=== PATIENT | male | born 1935 | race Caucasian/White ===

== ENCOUNTER 2017-09-20 13:02 | Observation (INO) | payer MEDICARE, OTHER ==
[~2017-09-20] VITALS: Ht 175.3 cm; Wt 82.6 kg
[2017-09-20 13:31] VITALS: BP 147/88
--- NOTE | 2017-09-20 13:34 | NUR ---
TRIAGE BROUGHT TO ROOM 6 AND MONITORS APPLIED. C/O BLOOD IN URINE. WAS SEEN HERE YESTERDAY WHERE HE HAD A CT, LABWORK AND UA. HE WAS STARTED ON CIPRO AND TOLD TO F/U WITH PRIMARY DOCTOR ON THURSDAY. HE HAS CONTINUALLY FELT WEAKER AND CONTINUED TO HAVE BLOOD IN THE URINE. NO PAIN UNLESS URINATING. VITAL SIGNS WITHIN NORMAL LIMITS. WARM BLANKET PROVIDED AND NOTIFIED DOCTOR OF PATIENT'S ARRIVAL. WILL F/U WITH FURTHER ORDERS. LW
--- NOTE | 2017-09-20 13:50 | NUR ---
LAB LAB HERE FOR BLOOD DRAW. LW
[2017-09-20 13:59] LABS: BASOPHIL % 0.2 % (0.0-0.2); EOSINOPHIL # 0.1 10^3/uL (0.0-0.2); EOSINOPHIL % 0.9 % (0.0-5.0); HEMOGLOBIN 13.4 g/dL (13.9-16.3); LYMPHOCYTES # 1.6 10^3/uL (1.0-4.8); LYMPHOCYTES % 16.3 % (24.0-44.0); MEAN CELL HGB 29.8 pg (26-34); MEAN CELL HGB CONCENTRATION 34.5 g/dL (33-37); MEAN CORP VOLUME 86.4 fL (78-100); MEAN PLATELET VOLUME 10.5 fL (7.8-11.0); MONOCYTES # 0.7 10^3/uL (0.3-0.8); MONOCYTES % 6.8 % (5.0-12.0); NEUTROPHIL # 7.3 10^3/uL (1.8-7.7); NEUTROPHILS % 75.2 % (41.0-85.0); RED CELL DISTRIBUTION WIDTH 12.5 % (11.5-14.5); WHITE BLOOD CELL 9.7 10^3/uL (4.5-11.0)
--- NOTE | 2017-09-20 14:25 | NUR ---
JOSE C DORANTES ON PHONE
--- NOTE | 2017-09-20 14:26 | PCM.EKG ---
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
--- NOTE | 2017-09-20 14:28 | ER.PDOC ---
General Chief Complaint: Male Stated Complaint: WEAKNESS AND DIZZINESS Time seen by MD: 14:21 Source: patient Exam Limitations: no limitations History of Present Illness Initial Comments Passing blood in urine since last night. Patient seen last night for same here and returns because it is not getting any better. Timing/Duration: yesterday Severity/Quality: moderate Associated Symptoms: Hematuria Sexual History: Non-contributory Prior symptoms/Treatment: Similar symptoms previous, Recenly Seen, Treated by Doctor Allergies: Coded Allergies: Sulfa (Sulfonamide Antibiotics) (Unverified Allergy, Unknown, Rash, ) Past Medical History Medical History: arrhythmia, cardiac problems Surgical History: neck Social History Smoking: non-smoker Alcohol Use: none Drug Use: none Review of Systems Constitutional: no symptoms reported EENTM: no symptoms reported Respiratory: no symptoms reported Cardiovascular: no symptoms reported Gastrointestinal: no symptoms reported Genitourinary: see HPI All Other Systems: Reviewed and Negative Physical Exam General Appearance: No Apparent Distress, WD/WN Neck: nml inspection, non-tender Cardiovascular/Respiratory: Regular Rate, Rhythm, No M/R/G, Normal Peripheral Pulses, No JVD, Normal Breath Sounds, No Respiratory Distress Abdomen: Normal Bowel Sounds, Non Tender, Soft, No Organomegaly, No Pulsatile Mass Back: nml inspection Extremities: Normal Range of Motion, Non-Tender, Normal Inspection, No Pedal Edema, No Calf Tenderness, Normal Capillary Refill Neurologic/Psychiatric: security orderly II-XII NML as Tested, No Motor/Sensory Deficits, Alert, Normal Mood/Affect, Oriented x 3 Skin: Normal Color, Warm/Dry Results/Orders Results/Orders Laboratory Tests Test 09/20/17 13:50 White Blood Count 9.7 10^3/uL (4.5-11.0) Red Blood Count 4.49 10^6/uL (4.50-5.90) Hemoglobin 13.4 g/dL (13.9-16.3) Hematocrit 38.8 % (37.0-53.0) Mean Corpuscular Volume 86.4 fL (78-100) Mean Corpuscular Hemoglobin 29.8 pg (26-34) Mean Corpuscular Hemoglobin Concent 34.5 g/dL (33-37) Red Cell Distribution Width 12.5 % (11.5-14.5) Platelet Count 202 10^3/uL (150-400) Mean Platelet Volume 10.5 fL (7.8-11.0) Neutrophils (%) (Auto) 75.2 % (41.0-85.0) Lymphocytes (%) (Auto) 16.3 % (24.0-44.0) Monocytes (%) (Auto) 6.8 % (5.0-12.0) Neutrophils # (Auto) 7.3 10^3/uL (1.8-7.7) Lymphocytes # (Auto) 1.6 10^3/uL (1.0-4.8) Monocytes # (Auto) 0.7 10^3/uL (0.3-0.8) Absolute Immature Granulocyte (auto 0.06 10^3 u/L (0-2) Eosinophils % 0.9 % (0.0-5.0) Basophils % 0.2 % (0.0-0.2) Basophils # 0.0 10^3/uL (0.0-0.1) Eosinophil Count 0.1 10^3/uL (0.0-0.2) Percent Immature Gran (Cell Imm) 0.60 % (0.00-0.50) Departure Time of Disposition: 14:26 Disposition: 09 ADMITTED INPATIENT Impression: Primary Impression: Hematuria, gross Condition: Stable Referrals: LUIS ALBERTO ROWE [employer] POLLUTION INSPECTOR (PCP) PRIMARY CARE PROVIDER Comments Admit to Dr. Harmon Duration or Time Spent with Pa: 30 mins ELOISA DORANTES MD Sep 20, 2017 14:28
[2017-09-20] MEDS ORDERED: D5W-1/2 NS/KCL 20MEQ 1,000 ML IV STA (14:42)
[2017-09-20] MEDS ORDERED: ROCEPHIN 1,000 MG in NS 100ML 100 ML IV STA (14:42)
--- NOTE | 2017-09-20 14:46 | PRM.ACF1 ---
Date and Time Date and Time Time: 14:45 Admission Criteria Forms HEMATOLOGY GRG Clinical Indications for Admission to Inpatient Care (Place 'X' for any and all applicable criteria): Hospital admission is needed for appropriate care of the patient because of ANY ONE of the following: [ ]I. Severe anemia indicated by ANY ONE of the following (1)(2) [ ]a) Altered mental status [ ]b) Syncope [ ]c) Other findings suggesting inadequate perfusion [ ]d) Chest pain [ ]e) Exertional dyspnea [ ]f) Treatment with transfusion or volume replacement is ineffective at resolving ANY ONE of the following [A]: [ ]i) Tachycardia for age [ ]ii) Orthostatic vital sign changes as indicated by ANY ONE of the following (3) [ ]1) Fall in SBP of 20 mm Hg or more 1 to 3 minutes after patient sits or stands from recumbent position [ ]2) Fall in DBP of 10 mm Hg or more 1 to 3 minutes after patient sits or stands from recumbent position [ ]II. High-risk febrile neutropenia [B] as indicated by ANY ONE of the following(4)(5) [ ]a) Hemodynamic instability [ ]b) Hypoxemia [ ]c) Tachypnea [ ]d) Altered mental status [ ]e) New onset abdominal pain [ ]f) New onset vomiting or diarrhea [ ]g) Pneumonia [ ]h) Profound neutropenia [C] anticipated to extend for more than 7 days [ ]i) Oral or gastrointestinal mucositis that interferes with swallowing or causes severe diarrhea [ ]j) Evidence of significant focal infection (eg, cellulitis, central line or catheter infection, perirectal abscess) [ ]k) Leukemia or lymphoma induction therapy [ ]l) Bone marrow transplant patient [ ]m) Renal insufficiency (eg, GFR of less than 30 mL/min/1.73m2 (0.5 mL/sec/1.73m2) [ ]n) Severe liver dysfunction (transaminase levels greater than 5 times normal) [ ]o) Platelet count less than 50,000/mm3 (50 x109/L)(6) [ ]p) Multinational Association for Supportive Care in Cancer (MASCC) Risk Index score of < 21 [D] [ ]III. High-risk low platelet count as indicated by ANY ONE of the following(8) (9) [ ]a) Severe or life-threatening bleeding (eg, intracranial, major gastrointestinal, or extensive mucosal bleeding), with any reduced platelet count [ ]b) Platelet count less than 20,000/mm3 (20 x109/L) with any active bleeding [ ]c) Platelet count less than 10,000/mm3 (10 x109/L) with minor purpura or petechiae [ ]d) Platelet count less than 5000/mm3 (5 x109/L) [ ]e) Low platelet count with hemolytic anemia [ ]IV.Active hemolysis with high-risk findings, including ANY ONE of the following(2)(10)(11) [ ]a) Hematocrit less than 25% (0.25) [ ]b) Rapidly progressing anemia [ ]c) Thrombocytopenia(12)(13) [ ]d) Evidence of thrombosis or new renal insufficiency [ ]V. Bleeding disorder with high-risk features (eg, hemophilia, coagulopathy) as indicated by ANY ONE of the following (2)(14)(15) [ ]a) Central nervous system bleeding [ ]b) Retroperitoneal bleeding [ ]c) Retropharyngeal bleeding [ ]d) Gastrointestinal bleeding (22) [ ]e) Purpura [ ]f) Disseminated intravascular coagulation(23) [ ]g) Major trauma [ ]h) Deep laceration [ ]i) Head trauma [ ]j) Any trauma with internal hematoma (eg, retroperitoneal, ocular) [ ]k) Failed outpatient management [ ]. Severe over-anticoagulation or high-risk situation as indicated by ANY ONE of the following(24)(25) [ ]a) Active bleeding [ ]b) International normalized ratio 5 or greater and rapid reversal needed [ ]c) International normalized ratio 9 or greater [ ]VII. Congenital immunodeficiency states with severe morbidity as indicated by ANY ONE of the following(26)(27) [ ]a) Severe infection [ ]b) Bone marrow transplant needed (Also use Medical Oncology GRG) [ ]VIII. Hyperviscosity syndrome with high-risk indicators indicated by ANY ONE of the following (2)(28)(29)(30)(31) [ ]a) Polycythemia vera with hematocrit greater than 60% (0.60) [ ]b) Elevated platelet count associated with thrombosis, bleeding, or life-threatening organ dysfunction [ ]c) Severe signs or symptoms from elevated red cell, white cell, or protein levels, including ANY ONE of the following: [ ]i) Mental status change [ ]ii) Dyspnea [ ]iii) Chest x-ray infiltrate [ ]iv) Visual changes [ ]v) Retinal abnormalities [ ]vi) Neuromuscular symptoms [ ]vii) Suspected ischemia or thrombosis [ ]viii) Bleeding [ ]IX. Methemoglobinemia greater than 15% (0.15) or severe symptoms persist after emergency treatment (32)(33) [ ]X. Spleen trauma with blood loss or other need for acute (medical) treatment (34) [ ]XI. Hematology condition and ALL of the following: [ ]a) Symptom or finding for which emergency and observation care have failed or are not considered appropriate (Also use General Criteria: Observation Care as appropriate) [ ]b) Presence of ANY ONE of the following: [ x]i) A General Admission Criteria [ ]ii) A Pediatric General Admission Criteria The original [facility] content created by [facility] has been revised. The portions of the content which have been revised are identified through the use of italic text or in bold, and [facility] has neither reviewed nor approved the modified material. All other unmodified content is copyright [facility]. Please see references footnoted in the original [facility] edition 2016 ELOISA DORANTES MD Sep 20, 2017 14:46
[2017-09-20] MEDS ORDERED: NS 100ML 100 ML IV ONE (14:55)
[2017-09-20] MEDS ORDERED: D5W-1/2 NS/KCL 20MEQ 1,000 ML ONE (14:56)
[2017-09-20] MEDS ORDERED: ROCEPHIN ONE (14:56)
--- NOTE | 2017-09-20 15:58 | NUR ---
ARRIVAL PATIENT ARRIVED TO MED-SURG UNIT AT THIS TIME. RECEIVED REPORT, ASSUMED CARE FOR PATIENT AT THIS TIME.
[2017-09-20 16:51] VITALS: BP 134/85
--- NOTE | 2017-09-20 19:27 | NUR ---
REPORT REPORT GIVEN TO ONCOMING SHIFT, RELINQUISHED CARE FOR PATIENT AT THIS TIME.
[2017-09-20] MEDS ORDERED: LEVAQUIN 100 ML IV ONE (19:30)
[2017-09-20] MEDS ORDERED: D5W-1/2NS 1000ML 1,000 ML IV ONE (19:30)
[2017-09-20 20:00] VITALS: BP 151/82
[2017-09-20] MEDS: LEVAQUIN 100 ML IV ONE (21:30)
[2017-09-21] VITALS (8 sets, daily range): BP systolic 124–186; BP diastolic 62–97
[2017-09-21] MEDS ORDERED: OMEP40CA6 PO (05:14)
[2017-09-21] MEDS ORDERED: PROP10TA PO (05:14)
[2017-09-21] MEDS ORDERED: TAMS-14 PO (05:15)
[2017-09-21] MEDS ORDERED: ATOR20TA PO (05:15)
--- NOTE | 2017-09-21 05:51 | NUR ---
Surgical shower complete. Clean gown/linens provided
[2017-09-21 06:08] LABS: BASOPHIL % 0.3 % (0.0-0.2); EOSINOPHIL # 0.2 10^3/uL (0.0-0.2); EOSINOPHIL % 1.5 % (0.0-5.0); LYMPHOCYTES # 2.3 10^3/uL (1.0-4.8); LYMPHOCYTES % 20.9 % (24.0-44.0); MEAN CELL HGB CONCENTRATION 34.8 g/dL (33-37); MEAN CORP VOLUME 86.3 fL (78-100); MEAN PLATELET VOLUME 10.5 fL (7.8-11.0); MONOCYTES # 1.1 10^3/uL (0.3-0.8); MONOCYTES % 9.4 % (5.0-12.0); NEUTROPHIL # 7.5 10^3/uL (1.8-7.7); NEUTROPHILS % 67.3 % (41.0-85.0); RED CELL DISTRIBUTION WIDTH 12.7 % (11.5-14.5); WHITE BLOOD CELL 11.2 10^3/uL (4.5-11.0)
--- NOTE | 2017-09-21 06:49 | NUR ---
Report Report given to ARACELI Marte
[2017-09-21] MEDS ORDERED: SUBLIMAZE ONE (07:08)
[2017-09-21] MEDS ORDERED: ZOFRAN ONE (07:08)
[2017-09-21] MEDS ORDERED: DIPRIVAN IV ONE (07:08)
[2017-09-21] MEDS ORDERED: TORADOL ONE (07:08)
[2017-09-21] MEDS ORDERED: VERSED ONE (07:08)
[2017-09-21] MEDS ORDERED: DECADRON ONE (07:08)
[2017-09-21] MEDS ORDERED: NS 3000ML IRR IR ONE (07:19)
[2017-09-21] MEDS ORDERED: SODIUM CHLORIDE IR ONE ×2 (07:19→08:16)
--- NOTE | 2017-09-21 07:20 | NUR ---
npo Pt NPO, DR WOODALL AT THE BEDSIDE, EXPLAINED PROCEDURE TO THE Pt AND HIS SPOUSE, Pt VERBALIZED UNDERSTANDING.
[2017-09-21] MEDS: LEVAQUIN 100 ML IV ONE (07:34)
--- NOTE | 2017-09-21 07:35 | NUR ---
CONSENT FORM Pt OUT FROM THE FLOOR TO THE OR ASSISTED BY OR NURSES MS ELLEN CHARLES, IN HOSPITAL BED CONSENT FORM SIGNED, BY Pt LEVAQUIN 500 MG ADMINISTERED BY OR NURSE PER ORDER.
[2017-09-21] MEDS ORDERED: TRANSDERM-SCOP TD ONE (07:44)
[2017-09-21] MEDS ORDERED: LACTATED RINGERS 1,000 ML ONE (08:43)
[2017-09-21] MEDS ORDERED: CIPR500T86 PO (08:50)
[2017-09-21] MEDS ORDERED: SUBLIMAZE IV PRN (09:00)
[2017-09-21] MEDS ORDERED: NORCO 7.5MG PO PRN (09:00)
[2017-09-21] MEDS ORDERED: ZOFRAN IV PRN (09:00)
[2017-09-21] MEDS ORDERED: LACTATED RINGERS 1,000 ML IV SCH ×2 (09:00)
--- NOTE | 2017-09-21 09:15 | NUR ---
BACK TO UNIT IN ROOM 310 Pt ARRIVED TO ROOM 310 FROM OR, IN HOSPITAL BED ASSISTED BY AVANI HUGHES RN AND KOBE CHARLES, Pt AO X 4, IS ON [address] ENGLISH CATHETER, BLODDY URINE NOTICED IN ENGLISH BAG, SPECIAL VITAL SIGN INITIATED, OFFERED FLUIDS.
--- NOTE | 2017-09-21 09:26 | NUR ---
C/O OF PAIN Pt C/ O PAIN IN PROSTATE AREA AT THE RATE OF "8, BURNING PAIN', ADMINISTERED NORCO 7. 5 MG PO PRN WILL REASSESS THE PAIN AGAIN. INSTRUCTED THE OF Pt THAT PT IS DISCHARGING TODAY, AND ALSO INSTRUCTED THAT Pt NEEDS TO CALL DR WOODALL OFFICE ON THURSDAY TO FIND OUT THE TIME OF TURP SCHEDULED ON THURSDAY, Pt WILL GO WITH ENGLISH, VERBALIZED UNDERSTANDING.
--- NOTE | 2017-09-21 10:36 | NUR ---
C/ O PAIN NOTIFIED DR WOODALL FOR Pt UNCONTROLLED PAIN BY NORCO 7.5 MG AND BP 159/91, RECEIVED AN ORDER FOR DEMEROL 50 MG IV STAT AND URISPAS 100 MG TID.
[2017-09-21] MEDS ORDERED: DEMEROL IV STA (10:41)
--- NOTE | 2017-09-21 11:00 | NUR ---
DISCHARGE PLAN CM VISITED WITH PATIENT AND REGARDING DISCHARGE PLAN AND NEEDS. PATIENT LIVES AT HOME WITH HIS . HE IS RETIRED AND VERY ACTIVE AND INDEPENDENT. HE DOES NOT USE ANY DME, IS NOT ON OXYGEN AT HOME, AND DENIES NEED FOR HOME HEALTH. DISCHARGE GOAL IS TO DISCHARGE HOME WITH HIS AND ROUTINE SELF CARE. CM DEPT WILL CONTINUE TO MONITOR DISCHARGE NEEDS.
--- NOTE | 2017-09-21 13:20 | OPH ---
DATE OF SURGERY: 09/21/2017 PREOPERATIVE DIAGNOSIS: Gross hematuria. 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 PROCEDURES: Cystoscopy, evacuation of blood clots, urethral dilatation with insertion of Ramirez catheter. DESCRIPTION OF PROCEDURE: The patient was brought to the cystoscopy room and was put in supine position on the cystoscopy table. After the patient was given a satisfactory and adequate LMA general anesthesia, the patient was placed in the lithotomy position. The genitalia was then prepped and draped aseptically in the usual manner. First, a 23-Cymraes cystoscope was inserted per urethra under direct vision with the use of a 30-degree angle lens. There is a hemorrhagic occlusive prostatic hyperplasia, it was noted the bladder was then visualized and there was a lot of blood clots and all the clots were then evacuated by bladder irrigation. After the bladder irrigation, the bladder was inspected with the use of the right angle lens and there was no tumor, no calculi seen. After this was done, the instrument was removed. Urethral dilatation was then performed and then a 22-Cymraes Ramirez catheter was inserted per urethra up to the bladder. Bladder was again irrigated. Return flow was clear. The patient was awakened, was transferred to the recovery room in stable condition. David Harmon MD DR: ILDA/yordy JOB# [id number]
--- NOTE | 2017-09-21 13:53 | NUR ---
CALLED [facility] THIS NURSE CALLED [facility] FOR NEW PRESCRIPTIONS OF Pt, TALKED TO PHARMACIST JERRICA, PRESCRIPTIONS WERE FOR CIPRO 500 MG PO BID #20 TABS, PYRIDIUM 200 MG TID PRN # 30 TABS, AND ULTRAM 50 MG Q 4 H PRN # 20
[2017-09-21] MEDS ORDERED: URISPAS PO SCH (15:00)
--- NOTE | 2017-09-21 15:20 | NUR ---
DISCHARGED Pt DISCHARGED TO HOME, EDUCATED PT AND SPOUSE ON DISCHARGE PACKET, ENGLISH LEG BAG, AND ENGLISH BAG HOME CARE, AND NEW PRESCRIPTIONS MEDS, Pt VERBALIZED UNDERSTANDING. IV D/C , ASSISTED IN WHEELCHAIR T MAIN EXIT.
== END 2017-09-21 15:20 | disposition home or self-care (01) ==
LOC: ER 13:02 → MS 14:30 → INTOOBSV 14:32 → OBSVTOIN 14:32
PROVIDERS: ADMIT Urology; ATTEND Urology
DX: N40.0 Benign prostatic hyperplasia without lower urinary tract symptoms (principal); N30.91 Cystitis, unspecified with hematuria; N32.89 Other specified disorders of bladder; I49.9 Cardiac arrhythmia, unspecified; Z88.2 Allergy status to sulfonamides
CPT/HCPCS: 36415 ×2; 51702; 85025 ×2; 93005; 96365; 96367; 96375; 99285; G0378 ×25; J0696 ×2; J1100; J1885; J1956; J2175; J2250; J2405; J3010; J3490; J7030 ×3; J7050 ×2; J7070; J7120 ×2; C1758; C1769

== ENCOUNTER 2017-09-24 09:00 | Observation (INO) | payer MEDICARE, OTHER ==
[~2017-09-24] VITALS: Ht 175.3 cm; Wt 79.4 kg
[~2017-09-24 09:00] MED LIST: ATOR20TA PO; CIPR500T86 PO; OMEP40CA6 PO; PROP10TA PO; TAMS-14 PO
[2017-09-24] MEDS ORDERED: LEVAQUIN 100 ML IV ONE (12:30)
[2017-09-25] MEDS ORDERED: SUBLIMAZE ONE (06:38)
[2017-09-25] MEDS ORDERED: ZOFRAN ONE (06:38)
[2017-09-25] MEDS ORDERED: DIPRIVAN IV ONE (06:39)
[2017-09-25 08:18] VITALS: BP 130/82
[2017-09-25 09:00] LABS: BASOPHIL % 0.3 % (0.0-0.2); EOSINOPHIL # 0.2 10^3/uL (0.0-0.2); EOSINOPHIL % 2.2 % (0.0-5.0); HEMOGLOBIN 12.7 g/dL (13.9-16.3); LYMPHOCYTES # 1.5 10^3/uL (1.0-4.8); LYMPHOCYTES % 19.6 % (24.0-44.0); MEAN CELL HGB CONCENTRATION 33.7 g/dL (33-37); MEAN CORP VOLUME 88.9 fL (78-100); MEAN PLATELET VOLUME 10.3 fL (7.8-11.0); MONOCYTES # 0.8 10^3/uL (0.3-0.8); MONOCYTES % 10.1 % (5.0-12.0); NEUTROPHILS % 67.1 % (41.0-85.0); RED CELL DISTRIBUTION WIDTH 13.1 % (11.5-14.5); WHITE BLOOD CELL 7.4 10^3/uL (4.5-11.0)
[2017-09-25] MEDS ORDERED: LACTATED RINGERS 1,000 ML IV SCH ×2 (09:00→12:00)
[2017-09-25] MEDS ORDERED: AMINOACETIC ACID IR ONE (09:10)
[2017-09-25] MEDS ORDERED: SODIUM CHLORIDE IR ONE (09:10)
[2017-09-25] MEDS ORDERED: TRANSDERM-SCOP TD ONE (09:25)
[2017-09-25] MEDS ORDERED: TRANSDERM-SCOP TD STA (09:27)
[2017-09-25] MEDS ORDERED: VERSED ONE (11:12)
[2017-09-25] MEDS ORDERED: LIDOCAINE 2% VIAL ONE (11:12)
--- NOTE | 2017-09-25 11:17 | NUR ---
DISCHARGE PLAN PATIENT LIVES AT HOME WITH HIS . HE IS RETIRED AND VERY ACTIVE AND INDEPENDENT. HE DOES NOT USE ANY DME, IS NOT ON OXYGEN AT HOME, AND DENIES NEED FOR HOME HEALTH. DISCHARGE GOAL IS TO DISCHARGE HOME WITH HIS AND ROUTINE SELF CARE. CM DEPT WILL CONTINUE TO MONITOR DISCHARGE NEEDS.
[2017-09-25 11:44] VITALS: BP 142/78
[2017-09-25 11:59] VITALS: BP 139/72
[2017-09-25] MEDS ORDERED: NORCO 7.5MG PO PRN (12:00)
[2017-09-25] MEDS ORDERED: PHEN-406 PO (12:06)
[2017-09-25 12:14] VITALS: BP 138/71
--- NOTE | 2017-09-25 12:25 | OPH ---
DATE OF SURGERY: 09/25/2017 PREOPERATIVE DIAGNOSES: Obstructive prostatic hyperplasia, urinary retention. FINAL DIAGNOSES: Obstructive prostatic hyperplasia, urinary retention, plus a bladder tumor. Severe hemorrhagic cystitis. PROCEDURE PERFORMED: Cystoscopy with bladder biopsy. DESCRIPTION OF PROCEDURE: The patient was brought to the cystoscopy room, was put in supine in the cystoscopy table. After the patient was given a spinal anesthesia, the patient was placed in the lithotomy position. The genitalia was then prepped and draped aseptically in the usual manner. First, the urethra was dilated, the catheter was removed and dilated with curved sounds and a 23-Czech resectoscope sheath was then inserted per urethra up to the bladder and the bladder was again inspected prior to the TURP; however, since before there were so many blood clots with severe bleeding, at this time, the bladder was clearing up and there is an area of ulcerated lesion in the posterior wall of the bladder and suspicious of the tumor. So, instead of doing a TURP of the prostate, a bladder biopsy was then performed and the rest of the bleeding area was fulgurated. Because of this situation, I decided to cancel the TURP until we have the result of the bladder biopsy. So, the bladder was irrigated. The return flow was clear. Instrument was removed and a Ramirez catheter was inserted and the patient was then transferred to the recovery room in stable condition. David Harmon MD DR: ILDA/yordy JOB# [id number]
--- NOTE | 2017-09-25 14:20 | NUR ---
ARRIVAL PATIENT ARRIVED TO MED-SURG UNIT AT THIS TIME. RECEIVED REPORT, ASSUMED CARE FOR PATIENT.
--- NOTE | 2017-09-25 15:30 | NUR ---
ARRIVAL PATIENT ARRIVED TO MED-SURG UNIT AT THIS TIME. RECEIVED REPORT, ASSUMED CARE FOR PATIENT AT THIS TIME. Addendum: 09/25/17 at 1612 by NAOMI Greenfield LVN WRONG PATIENT.
[2017-09-25 17:52] VITALS: BP 141/82
--- NOTE | 2017-09-25 19:45 | NUR ---
Pt states he can now feel his legs, feels like he is ready to go home, c/o pain rated "6" on 0-10 scale, would like a pain pill prior to discharge if possible, Hydrocodone to be given as per PRN order, pt states he has taken this before with no problems. VS obtained at this time all WNL.
--- NOTE | 2017-09-25 20:05 | NUR ---
Discharge instructions given at this time to patient and . Discussed new medications, Cipro and Pyridium, correct way to take, and possible side effects, and discussed following up with Dr. Harmon next as ordered. Pt and also given instructions for after care of cystoscopy. Both verbalize understanding and agreement with all instructions given. Deny further questions at this time. Pt taken to private vehicle via wheelchair at this time. Pt appears in stable condition upon dismissal.
[2017-09-25 20:09] VITALS: BP 149/78
== END 2017-09-25 20:05 | disposition home or self-care (01) ==
LOC: INTOOBSV 09-25 02:30 → MS 09-25 02:30
PROVIDERS: ADMIT Urology; ATTEND Urology
DX: N40.1 Benign prostatic hyperplasia with lower urinary tract symptoms (principal); N13.8 Other obstructive and reflux uropathy; R33.8 Other retention of urine; D49.4 Neoplasm of unspecified behavior of bladder; N30.91 Cystitis, unspecified with hematuria
CPT/HCPCS: 36415; 52204; 85025; 88305; G0378 ×18; J1956; J2001; J2250; J2405; J3010; J3490; J7030; J7120

== ENCOUNTER 2017-10-02 01:48 | Inpatient (IN) | payer MEDICARE, OTHER ==
[~2017-10-02] VITALS: Ht 175.3 cm; Wt 88.6 kg
[~2017-10-02 01:48] MED LIST changes: +PHEN-406 PO
[2017-10-02] MEDS ORDERED: DIPRIVAN IV ONE (06:38)
[2017-10-02] MEDS ORDERED: SUBLIMAZE ONE (06:38)
[2017-10-02] MEDS ORDERED: LIDOCAINE 2% VIAL ONE (06:39)
[2017-10-02 06:41] VITALS: BP 158/89
[2017-10-02] MEDS: LACTATED RINGERS 1,000 ML IV SCH ×2 (06:52→20:04)
[2017-10-02] MEDS ORDERED: LEVAQUIN 100 ML IV ONE (07:00)
[2017-10-02] MEDS ORDERED: SODIUM CHLORIDE IR ONE (07:35)
[2017-10-02] MEDS ORDERED: NS 3000ML IRR IR ONE (07:35)
[2017-10-02] MEDS ORDERED: AMINOACETIC ACID IR ONE (07:35)
[2017-10-02] MEDS ORDERED: TRANSDERM-SCOP TD ONE (08:54)
[2017-10-02 08:55] VITALS: BP 147/84
[2017-10-02 09:08] VITALS: BP 147/82
[2017-10-02] MEDS ORDERED: NORCO 7.5MG PO ONE (09:12)
[2017-10-02] MEDS: NORCO 7.5MG PO PRN ×2 (09:15→18:07)
[2017-10-02] MEDS ORDERED: ZOFRAN ONE (09:20)
[2017-10-02 09:23] VITALS: BP 161/81
[2017-10-02] MEDS ORDERED: SUBLIMAZE IV PRN (09:30)
[2017-10-02] MEDS ORDERED: ZOFRAN IV PRN (09:30)
[2017-10-02] MEDS ORDERED: LACTATED RINGERS 1,000 ML ONE (10:02)
[2017-10-02] MEDS: LIPITOR PO SCH (10:11)
[2017-10-02] MEDS: FLOMAX PO SCH (10:11)
[2017-10-02] MEDS: PYRIDIUM PO SCH ×3 (10:11→21:32)
[2017-10-02] MEDS: PHENERGAN IV PRN ×2 (11:35→19:39)
[2017-10-02] MEDS: DEMEROL IV PRN ×2 (11:36→19:39)
[2017-10-02] MEDS ORDERED: [UNRECOGNIZED DRUG - OTHER] IR ONE (16:41)
[2017-10-02 20:12] VITALS: BP 160/89
[2017-10-02 23:08] VITALS: BP 153/91
[2017-10-03] MEDS ORDERED: [UNRECOGNIZED DRUG - OTHER] IR ONE (01:12)
[2017-10-03] MEDS: DEMEROL IV PRN (01:24)
[2017-10-03] MEDS: PHENERGAN IV PRN (01:24)
[2017-10-03 04:40] LABS: HEMOGLOBIN 12.6 g/dL (13.9-16.3); MEAN CELL HGB 29.4 pg (26-34); MEAN CELL HGB CONCENTRATION 32.6 g/dL (33-37); MEAN CORP VOLUME 90.4 fL (78-100); MEAN PLATELET VOLUME 10.9 fL (7.8-11.0); RED CELL DISTRIBUTION WIDTH 13.4 % (11.5-14.5)
[2017-10-03 04:59] LABS: CARBON DIOXIDE 29.3 mmol/L (20.0-32)
[2017-10-03 05:36] VITALS: BP 164/76
[2017-10-03] MEDS: LACTATED RINGERS 1,000 ML IV SCH (05:58)
--- NOTE | 2017-10-03 06:30 | NUR ---
REPORT REPORT RECEIVED FROM SHIRA BARKER ASSUMED CARE OF PT
[2017-10-03 06:45] VITALS: BP 138/85
--- NOTE | 2017-10-03 08:00 | NUR ---
JOSE C ORDER TO D/C CBI, SCD'S, AND IV FLUIDS RECEIVED FROM DR WOODALL.
[2017-10-03] MEDS ORDERED: SODIUM CHLORIDE IR ONE (09:00)
[2017-10-03] MEDS: FLOMAX PO SCH (09:09)
[2017-10-03] MEDS: PYRIDIUM PO SCH ×3 (09:09→20:45)
[2017-10-03] MEDS: COLACE PO SCH ×2 (09:09→20:45)
[2017-10-03] MEDS: NORCO 7.5MG PO PRN ×3 (09:09→20:45)
[2017-10-03] MEDS: LIPITOR PO SCH (09:09)
--- NOTE | 2017-10-03 11:09 | PNH ---
DATE: 10/03/2017 The patient is postop day #1. The patient is afebrile. Vital signs are stable. The catheter was irrigated and urine was completely clear. The patient is doing well, and we will discontinue the IV and change to Hep-Lock and discontinue the CBI and we will get him out of bed. David Harmon MD DR: ILDA/yordy JOB# [id number]
[2017-10-03 14:50] VITALS: BP 119/68
[2017-10-03 18:15] VITALS: BP 120/72
--- NOTE | 2017-10-03 21:18 | OPH ---
DATE OF SURGERY: 10/02/2017 PREOPERATIVE DIAGNOSES: Obstructive prostatic hyperplasia, urinary retention. FINAL DIAGNOSES: Obstructive prostatic hyperplasia, urinary retention. PROCEDURES: TUR of the prostate. DESCRIPTION OF PROCEDURE: The patient was brought to the cystoscopy room and was put in the sitting position and the low spinal anesthesia was then done. After this was done, the patient was put in supine position and after few minutes, she was placed in the lithotomy position on the cystoscopy table. The genitalia was then prepped and draped aseptically in the usual manner. The Ramirez catheter was previously removed. A 24-Swedish resectoscope sheath was then inserted per urethra up to the bladder. With the use of the [employer] resectoscope with 30-degree angle lens, the posterior urethra was visualized. Verumontanum was identified. There is bilateral lobe obstructive prostatic hyperplasia. Bladder was congested. No tumor, no calculi seen. After visual inspection, a TUR of the prostate was then started at the bladder neck between 5 and 7 and this was carried proximal to the verumontanum. The lateral lobes were resected next followed by the roof. After adequate resection of the prostatic hyperplasia up to the prostatic capsule and after I had adequate hemostasis, all tissue tips were then evacuated from the bladder. The bladder was then irrigated. Return flow was clear. The procedure was terminated. The resectoscope sheath was then removed and a Ramirez catheter was then inserted. The patient was then transferred to the recovery room in stable condition. David Harmon MD DR: ILDA/yordy JOB# [id number]
[2017-10-03 23:07] VITALS: BP 123/61
[2017-10-04 04:41] VITALS: BP 116/69
--- NOTE | 2017-10-04 06:45 | NUR ---
REPORT RECEIVED REPORT, ASSUMED CARE FOR PATIENT AT THIS TIME.
[2017-10-04] MEDS ORDERED: TRAM50TA PO (08:16)
[2017-10-04] MEDS ORDERED: FLAV100T PO (08:16)
[2017-10-04] MEDS: FLOMAX PO SCH (08:56)
[2017-10-04] MEDS: LIPITOR PO SCH (08:56)
[2017-10-04] MEDS: PYRIDIUM PO SCH (08:56)
[2017-10-04] MEDS: COLACE PO SCH (08:56)
--- NOTE | 2017-10-04 09:13 | NUR ---
DR. WOODALL AT BEDSIDE FOR REMOVAL OF ENGLISH CATHETER. EDUCATION GIVEN TO PATIENT ON ALERTING NURSE WHEN THE NEED TO URINATE ARISES, AND TO ALERT NURSE IF FULLNESS, OR PAIN IS FELT IN THE BLADDER WITH THE INABILITY TO URINATE
[2017-10-04 10:24] VITALS: BP 116/69
--- NOTE | 2017-10-04 10:28 | NUR ---
DISCHARGE PATIENT BEING DISCHARGED HOME AT THIS TIME IN STABLE CONDITION. PATIENT STATES THAT HE LIVES AT HOME WITH HIS AND HAS PLENTY OF HELP AT HOME WITH HIS CARE. DENIES NEEDING ADDITIONAL RESOURCES AT THIS TIME. RELINQUISHED CARE FOR PATIENT.
--- NOTE | 2017-10-04 11:17 | PNH ---
DATE: 10/04/2017 SUBJECTIVE: This is postop day #2. The patient is afebrile. Urine is clear. Ramirez catheter was irrigated and there were no clots removed. Ramirez catheter was then removed. PLAN: To observe for voiding and discharge the patient if voiding fairly well by this afternoon. David Harmon MD DR: ILDA/yordy JOB# [id number]
--- NOTE | 2017-10-05 02:38 | DSH ---
DATE OF DISCHARGE: 10/04/2017 DATE OF ADMISSION: 10/02/2017 DATE OF DISCHARGE: 10/04/2017 PREOPERATIVE DIAGNOSES: Obstructive prostatic hyperplasia, urinary retention. FINAL DIAGNOSES: Obstructive prostatic hyperplasia, urinary retention. PROCEDURE: TUR of the prostate. HISTORY OF PRESENT ILLNESS: This is a 81-year-old white male, who was admitted to the hospital because of urinary retention. Pertinent findings on rectal exam which revealed the prostate to be noted remarkably 2 to 3+ firm, smooth, nontender. LABORATORY DATA: CBC, electrolytes, BUN, creatinine within normal range. COURSE IN HOSPITAL: The patient underwent TUR of the prostate under spinal anesthesia. There was no operative complication noted. Postoperatively, the patient did very well and the first day postop, the IV was discontinued including the CBI and then a second day postop, which is today, the urine was completely clear and a Ramirez catheter was removed. We will observe for further voiding and we will probably discharge this afternoon. We will follow up in the office and now we will await for the ____ of the path report. David Harmon MD DR: ILDA/yordy JOB# [id number]
== END 2017-10-04 10:23 | disposition home or self-care (01) | DRG 713 ==
LOC: MS 01:48
PROVIDERS: ADMIT Urology; ATTEND Urology
PROC: 0VB08ZZ Excision of Prostate, Via Natural or Artificial Opening Endoscopic (ICD-10-PCS; principal; 2017-10-02 07:51)
DX: N40.1 Benign prostatic hyperplasia with lower urinary tract symptoms (principal); N13.8 Other obstructive and reflux uropathy; I10 Essential (primary) hypertension; R33.8 Other retention of urine; Z88.2 Allergy status to sulfonamides; Z79.899 Other long term (current) drug therapy
CPT/HCPCS: 36415; 80051; 85027; 88305; J1956; J2001; J2175; J2405; J2550; J3010; J3490; J7030; J7120